=== PATIENT | male | born 1970 ===

== ENCOUNTER 2018-09-13 07:12 | Emergency (ER) | payer BC, OTHER ==
[2018-09-13 07:36] VITALS: BP 127/73
[2018-09-13 07:51] LABS: Influenza A Molecular POSITIVE (Negative)
--- NOTE | 2018-09-13 07:55 | UC ---
FLU HPI - HPI Summary HPI Summary: Pt with 4 days body aches, congestion, sore throat, fatigue. + sick contact + OTC meds. no cp, sob. mild nausea, no vomiting. 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 Onset/Duration: Gradual Onset Severity Currently: Moderate Severity Initially: Moderate Pain Intensity: 0 - Allergy/Home Medications Allergies/Adverse Reactions: Allergies Allergy/AdvReac Type Severity Reaction Status Date / Time No Known Allergies Allergy Verified 09/13/18 07:29 Home Medications: Home Medications Lisinopril TAB* [Prinivil TAB*] 10 mg PO DAILY 09/13/18 [History Confirmed 09/13] PMH/Surg Hx/FS Hx/Imm Hx Previously Healthy: Yes Other Cancer History: non hodgkins age 25 - Surgical History Surgical History: None - Family History Known Family History: Positive: Non-Contributory Negative: Hypertension - Social History Occupation: Employed Full-time Lives: With Family Alcohol Use: None Substance Use Type: None Smoking Status (MU): Never Smoked Tobacco Review of Systems All Other Systems Reviewed And Are Negative: Yes Constitutional: Positive: Fever, Fatigue ENT: Positive: Nasal Discharge, Sinus Congestion Respiratory: Positive: Cough Gastrointestinal: Positive: Nausea Physical Exam - Summary Physical Exam Summary: Vital Signs Reviewed: Yes A+Ox3, no distress, tired appearing Eyes: Conjunctiva Clear, BRIANNE. EOM intact and full ENT: Hearing grossly normal TM x 2 clear, turbinates inflammed and boggy mmoist , uvula midline, no exudate, mild erythema Neck: Positive: Supple Respiratory: Positive: No respiratory distress, No accessory muscle use + CTA throughout no w/r, intermittent cough Cardiovascular: RRR nl s1, s2 no m/r CBT <2 sec abd soft + BS nt/nd no guarding, no distension Musculoskeletal Exam: VEGA x 4 without difficulty Strength Intact, ROM Intact Neurological: Positive: Alert, + sensation throughout Psychological: Positive: Normal Response To Family Skin: Positive: no rash, no ecchymosis Vital Signs: Initial Vital Signs Temp 100.6 F 09/13/18 07:31 Pulse 99 09/13/18 07:31 Resp 18 09/13/18 07:31 BP 127/73 09/13/18 07:31 Pulse Ox 97 09/13/18 07:31 Flu Course/Dx - Course Course Of Treatment: Pt presents with progressive fatigue, chills, congestion, sob x 4 days. + influenza. reviewed wth pt motrin/apap. secretion precaution. humidified air. work note - Differential Dx/Diagnosis Provider Diagnosis: Influenza A Discharge - Sign-Out/Discharge Documenting (check all that apply): Patient Departure All imaging exams completed and their final reports reviewed: No Studies - Discharge Plan Condition: Stable Disposition: HOME Prescriptions: Benzonatate CAP* [Tessalon 100 MG CAP*] 100 mg PO TID PRN #21 cap PRN Reason: Cough Fluticasone NASAL SPRAY 50MCG* [Flonase NASAL SPRAY 50MCG*] 2 spray BOTH NARES DAILY #1 btl Patient Education Materials: Influenza (ED) Forms: *Work Release Referrals: Ricardo Muniz MD [Primary Care Provider] - Additional Instructions: - Stay well hydrated. Drink plenty of non-alcoholic, non-caffinated beverages. - Alternate ibuprofen (Advil, Motrin) 600mg and Tylenol every 3 hours for pain or fever. Take with food. Do NOT take for more than 4-5 days. - These infections are spread by secretions - do NOT share eating or drinking utensils - clean items you share with other people such as cell phones, computer mouse, TV remote, computer tablets,etc. Once you start to feel better, change your toothbrush and your pillowcase. - get plenty of restful sleep - humidify the air in the room where you sleep - boil water, run a hot steam shower, vaporizer, cups of water by heat register - okay to take over the cough medication or the medication prescribed to your cough - Use nasal spray as prescribed - contact your doctor or return with questions or concerns - Billing Disposition and Condition Condition: STABLE Disposition: Home
== END 2018-09-13 08:23 | disposition home or self-care (01) ==
LOC: UCCORT 07:12
DX: J09.X2 Influenza due to identified novel influenza A virus with other respiratory manifestations (principal)
CPT/HCPCS: 99212; G0463